=== PATIENT | male | born 1990 | race Caucasian/White ===

== ENCOUNTER 2017-05-23 08:38 | Emergency (ER) | payer MEDICAID ==
[2017-05-23 08:40] VITALS: BMI 23.5
[2017-05-23] MEDS ORDERED: Sodium Chloride 0.9% 500 ML IV ONE (08:56)
--- NOTE | 2017-05-23 09:02 | C.PDOC ---
History Of Present Illness 27 year-old male, whose PMH includes Substance Abuse, presents to the emergency department complaining of generalized body aches, left sided abdominal pain, and leg numbness for the past 3 days. Patient states he has chronic abdominal pain, onset 2 years ago. He was supposed to see GI, but never followed up. He states the pain is in epigastric and LUQ, non-radiating and feels sharp intermittently lasting at most 20 minutes. He admits the pain gets worse whenever he drinks or smokes or uses drugs. He reports using cocaine, "ramya", marijuana, and drinking alcohol 2 days ago. Patient states his legs feel weak and "numb", and when asked further to elaborate he states he just feels like he cannot walk because he is fatigued. He states he was too tired to get out of bed and was unable to get to work. Denies nausea, vomiting, diarrhea, fevers, chills, shortness of breath, or any other associated symptoms. Time Seen by Provider: 05/23/17 08:49 Chief Complaint (Nursing): Lower Extremity Problem/Injury History Per: Patient History/Exam Limitations: no limitations Onset/Duration Of Symptoms: Days Current Symptoms Are (Timing): Still Present Past Medical History Reviewed: Historical Data, Nursing Documentation, Vital Signs Vital Signs: Last Vital Signs Temp 97.8 F 05/23/17 10:32 Pulse 57 L 05/23/17 10:32 Resp 17 05/23/17 10:32 BP 103/65 05/23/17 10:32 Pulse Ox 100 05/23/17 10:32 - Medical History PMH: No Chronic Diseases Surgical History: No Surg Hx Family History: States: No Known Family Hx - Social History Hx Tobacco Use: Yes Hx Alcohol Use: Yes Hx Substance Use: Yes (PCP, cocaine, last use last week.) - Immunization History Hx Tetanus Toxoid Vaccination: No Hx Influenza Vaccination: No Hx Pneumococcal Vaccination: No Review Of Systems Constitutional: Negative for: Fever, Chills Gastrointestinal: Positive for: Abdominal Pain. Negative for: Nausea, Vomiting Genitourinary: Negative for: Dysuria, Hematuria Musculoskeletal: Negative for: Back Pain Skin: Negative for: Rash Neurological: Positive for: Numbness. Negative for: Weakness Physical Exam - Physical Exam Appears: Well, Non-toxic, No Acute Distress Skin: Warm, Dry, No Rash Head: Atraumatic, Normacephalic Eye(s): bilateral: PERRL, EOMI Oral Mucosa: Moist Neck: Supple Chest: Symmetrical, No Tenderness Cardiovascular: Rhythm Regular Respiratory: No Rales, No Rhonchi, No Wheezing, Other (Clear to auscultation) Gastrointestinal/Abdominal: Soft, No Tenderness, No Mass, No Guarding, No Rebound, No Hernia Back: No CVA Tenderness Extremity: Bilateral: Atraumatic, No Pedal Edema, Normal Color And Temperature, Normal ROM Pulses: Left Radial: Normal, Right Radial: Normal Neurological/Psych: Oriented x3, Normal Speech, Normal Motor, Normal Sensation Gait: Steady ED Course And Treatment - Laboratory Results Result Diagrams: 05/23/17 09:17 05/23/17 09:17 Lab Interpretation: No Acute Changes O2 Sat by Pulse Oximetry: 99 (RA) Pulse Ox Interpretation: Normal Medical Decision Making Medical Decision Making: Impression: upper abdominal pain, drug abuse Plan: * Labs, UDS * IV NS * Pepcid Prior Visits: Notes and results from previous visits were reviewed. Patient has been seen for drug abuse Progress Notes: Labs reviewed and unremarkable Re-evaluation Time: 10:12 Patient feels better. Discussed results with patient and provide copy of lab reports. Patient expresses understanding. All questions answered and there is agreement with the plan to discharge home with instructions. Patient stable for discharge. Return if symptoms persist or worsen. Reassessment Condition: Re-examined, Improved Dispo: Discharge home. Patient was recommended to follow up with PCP or clinic in 1-2 days. Return to ED if symptoms worsen. Disposition Counseled Patient/Family Regarding: Diagnosis, Need For Followup, Rx Given - Disposition Referrals: Alcoholics Anonymous [Outside] [facility] [Outside] [facility] [Outside] Disposition: HOME/ ROUTINE Disposition Time: 10:27 Condition: STABLE Additional Instructions: Please follow up with primary doctor or clinic. [facility] at [address] [place] [address]. Please call [phone] or [phone] to arrange appointment. 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 - Scribe Statement The provider has reviewed the documentation as recorded by the Pollyibkrystal Crump All medical record entries made by the Pollyibkrystal were at my direction and personally dictated by me. I have reviewed the chart and agree that the record accurately reflects my personal performance of the history, physical exam, medical decision making, and the department course for this patient. I have also personally directed, reviewed, and agree with the discharge instructions and disposition.
[2017-05-23] MEDS ORDERED: Sodium Chloride 0.9% 1,000 ML ONE (09:05)
[2017-05-23 09:21] LABS: BASO % 1.3 % (0.0-2.0); EOS # 0.2 K/uL (0.0-0.7); EOS % 7.1 % (0.0-4.0); HEMATOCRIT 40.3 % (35.0-51.0); LYMPH # 1.3 K/uL (1.0-4.3); LYMPH % 39.2 % (20.0-40.0); MEAN CELL VOLUME 88.8 fL (80.0-94.0); MEAN CORPUSCULAR HEMOGLOBIN 29.4 pg (27.0-31.0); MEAN CORPUSCULAR HGB CONC 33.1 g/dL (33.0-37.0); MEAN PLATELET VOLUME 8.1 fL (7.2-11.7); MONO # 0.4 K/uL (0.0-0.8); MONO % 12.5 % (0.0-10.0); NRBC % 0.1 % (0.0-2.0); RED CELL DISTRIBUTION WIDTH 13.1 % (11.5-14.5); WHITE BLOOD COUNT 3.3 K/uL (4.8-10.8)
[2017-05-23 09:24] LABS: RBC URINE < 1 /hpf (0-3); URINE BILIRUBIN NEGATIVE (NEGATIVE); URINE BLOOD NEGATIVE (NEGATIVE); URINE COLOR Yellow (YELLOW); URINE GLUCOSE (UA) NORMAL (Normal); URINE KETONE NEGATIVE (NEGATIVE); URINE LEUKOCYTE ESTERASE NEG Leu/uL (Negative); URINE PROTEIN NEGATIVE (NEGATIVE); WBC URINE 1 /hpf (0-5)
[2017-05-23 09:38] LABS: ALB/GLOB RATIO 1.5 (1.0-2.1); ALCOHOL SERUM < 10 mg/dl (0-10); ALKALINE PHOSPHATASE 46 U/L (38-126); ALT/SGPT 36 U/L (21-72); AST/SGOT 24 U/L (17-59); BILIRUBIN,TOTAL 0.8 mg/dL (0.2-1.3); BLOOD UREA NITROGEN 14 mg/dL (9-20); CALCIUM 8.6 mg/dl (8.6-10.4); CARBON DIOXIDE 32 mmol/L (22-30); CHLORIDE 100 mmol/L (98-107); GFR AFRICAN-AMERICAN > 60; GLUCOSE,RANDOM 90 mg/dL (75-110); POTASSIUM 4.1 mmol/L (3.6-5.2); SODIUM 138 mmol/L (132-148); TOTAL PROTEIN 7.1 g/dL (6.3-8.3)
[2017-05-23 10:33] VITALS: BP 103/65; PULSE 57; RESP 17; TEMP 97.8
[2017-05-23 11:55] VITALS: O2SAT 99
== END 2017-05-23 10:41 | disposition home or self-care (01) ==
LOC: C.ER 08:38
DX: F19.10 Other psychoactive substance abuse, uncomplicated (principal); R10.12 Left upper quadrant pain; Z87.891 Personal history of nicotine dependence
CPT/HCPCS: 80053; 80320; 80324; 80345; 80346; 80349; 80353; 80358; 80361; 81001; 83992; 85025; 96361; 96374; 99285; J7040

== ENCOUNTER 2017-07-21 23:14 | Emergency (ER) | payer MEDICAID ==
[2017-07-21 23:14] VITALS: BMI 23.5
[2017-07-21 23:24] VITALS: RESP 18
== END 2017-07-21 23:23 | disposition left against medical advice (07) ==
LOC: C.ER 23:14
DX: Z02.89 Encounter for other administrative examinations (principal); F10.10 Alcohol abuse, uncomplicated

== ENCOUNTER → 2018-01-31 16:50 | Emergency (ER) | payer MEDICAID | END | disposition left against medical advice (07) | LOC: C.ER 16:50 | DX: Z02.89 Encounter for other administrative examinations (principal); F19.10 Other psychoactive substance abuse, uncomplicated ==

== ENCOUNTER 2018-02-01 10:09 | Emergency (ER) | payer MEDICAID ==
[2018-02-01 10:14] VITALS: BMI 21.9
[2018-02-01 10:20] VITALS: BP 123/74; PULSE 87; RESP 18; TEMP 98.8; O2SAT 97
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
== END 2018-02-01 11:02 | disposition home or self-care (01) ==
LOC: C.ER 10:09
DX: L03.115 Cellulitis of right lower limb (principal); Z72.0 Tobacco use

== ENCOUNTER 2018-02-02 11:21 | Emergency (ER) | payer MEDICAID ==
[2018-02-02 11:22] VITALS: BMI 21.9
[2018-02-02 11:30] VITALS: BP 131/87; PULSE 101; RESP 18; TEMP 98.2; O2SAT 96
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
== END 2018-02-02 12:14 | disposition home or self-care (01) ==
LOC: C.ER 11:21
DX: Z48.02 Encounter for removal of sutures (principal)

== ENCOUNTER 2018-02-07 05:28 | Emergency (ER) | payer MEDICAID ==
[2018-02-07 05:28] VITALS: BMI 21.9
[2018-02-07 05:38] VITALS: BP 128/61; PULSE 79; RESP 20; TEMP 98.6; O2SAT 98
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
== END 2018-02-07 06:02 | disposition home or self-care (01) ==
LOC: C.ER 05:28
DX: Z48.00 Encounter for change or removal of nonsurgical wound dressing (principal)

== ENCOUNTER 2018-03-15 13:09 | Emergency (ER) | payer MEDICAID ==
[2018-03-15 13:09] VITALS: BMI 21.9
[2018-03-15 13:16] VITALS: RESP 18; TEMP 98.8
--- NOTE | 2018-03-15 14:26 | C.PDOC ---
History Of Present Illness 28 year old male presents to ED complaining of chronic lower back pain that radiates to left leg for many years. Contrary to triage, patient did not admit to any recent falls. Denies having or taking any medications, fever, chills, weakness, numbness. Time Seen by Provider: 03/15/18 13:39 Chief Complaint (Nursing): Back Pain History Per: Patient History/Exam Limitations: no limitations Onset/Duration Of Symptoms: Days Current Symptoms Are (Timing): Still Present Past Medical History Reviewed: Historical Data, Nursing Documentation, Vital Signs Vital Signs: Last Vital Signs Temp 98.8 F 03/15/18 13:12 Pulse 97 H 03/15/18 13:12 Resp 18 03/15/18 13:12 BP 129/80 03/15/18 13:12 Pulse Ox 98 03/15/18 13:12 Surgical History: No Surg Hx Family History: States: No Known Family Hx - Social History Hx Tobacco Use: Yes Hx Alcohol Use: Yes Hx Substance Use: Yes (PCP, cocaine, LAST USED LAST NIGHT) - Immunization History Hx Tetanus Toxoid Vaccination: No Hx Influenza Vaccination: No Hx Pneumococcal Vaccination: No Review Of Systems Except As Marked, All Systems Reviewed And Found Negative. Constitutional: Negative for: Fever, Chills Musculoskeletal: Positive for: Back Pain (Chronic lower back pain that radiates to left leg.), Leg Pain (Left leg pain) Neurological: Negative for: Weakness, Numbness Physical Exam - Physical Exam Appears: Non-toxic, No Acute Distress Skin: Warm, Dry, No Ecchymosis (No bruises of any type) Head: Atraumatic, Normacephalic Eye(s): bilateral: Normal Inspection Chest: Symmetrical, No Deformity Cardiovascular: Rhythm Regular Respiratory: Normal Breath Sounds Gastrointestinal/Abdominal: Normal Exam, Bowel Sounds Back: No CVA Tenderness, Paraspinal Tenderness, No Straight Leg Raising, Other (Some tenderness to inferior L spine that radiates to left leg. ) Extremity: Normal ROM, No Tenderness, No Deformity Neurological/Psych: Oriented x3 Gait: Steady ED Course And Treatment O2 Sat by Pulse Oximetry: 98 (RA) Pulse Ox Interpretation: Normal Reassessment Condition: Improved (AMBULATES WITH STEADY GAIT, SPEAKS IN FULL SENTENCES) Medical Decision Making Medical Decision Making: Plan: * Ibuprofen Reevaluation: Patient states there is no pain and ambulates with steady gait. Patient was discharged home. Disposition Counseled Patient/Family Regarding: Studies Performed, Diagnosis, Need For Followup, Rx Given - Disposition Referrals: Edu Miguel MD [Medical Doctor] - Disposition: HOME/ ROUTINE Disposition Time: 14:26 Condition: STABLE Additional Instructions: FOLLOW UP WITH DR MIGUEL ON SATURDAY FOR RE-EVALUATION AND PHYSICAL THERAPY REFERRAL. IF URINARY/ BOWEL INCONTINENCE, LEG NUMBNESS OR WEAKNESS DEVELOP RETURN TO ED. 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 - Scribe Statement The provider has reviewed the documentation as recorded by the Scribe Guy Alvarado
[2018-03-15 14:32] VITALS: BP 125/73; PULSE 67
[2018-03-15 15:59] VITALS: O2SAT 98
== END 2018-03-15 14:32 | disposition home or self-care (01) ==
LOC: C.ER 13:09
DX: M54.32 Sciatica, left side (principal)

== ENCOUNTER 2018-03-16 15:52 | Emergency (ER) | payer MEDICAID ==
[2018-03-16 15:53] VITALS: BMI 21.9
--- NOTE | 2018-03-16 16:18 | C.PDOC ---
History Of Present Illness 28-year-old male, presents to the emergency department with complaints of pain in his lower back x1 week. Patient states he was seen in ED yesterday but pain persisted, prompting visit. He denies any nausea/vomiting, numbness/weakness, bladder/bowel incontinence, fever, chills. No other complaints at this time. Time Seen by Provider: 03/16/18 16:16 Chief Complaint (Nursing): Back Pain History Per: Patient History/Exam Limitations: no limitations Current Symptoms Are (Timing): Still Present Past Medical History Reviewed: Historical Data, Nursing Documentation, Vital Signs Vital Signs: Last Vital Signs Temp 98.7 F 03/16/18 15:57 Pulse 77 03/16/18 15:57 Resp 20 03/16/18 15:57 BP 113/55 L 03/16/18 15:57 Pulse Ox 97 03/16/18 15:57 Family History: States: Unknown Family Hx - Social History Hx Tobacco Use: Yes Hx Alcohol Use: Yes Hx Substance Use: Yes (PCP, cocaine, LAST USED LAST NIGHT) - Immunization History Hx Tetanus Toxoid Vaccination: No Hx Influenza Vaccination: No Hx Pneumococcal Vaccination: No Review Of Systems Constitutional: Negative for: Fever, Chills Gastrointestinal: Negative for: Nausea, Vomiting Neurological: Negative for: Weakness, Numbness Physical Exam - Physical Exam Appears: Non-toxic, No Acute Distress Skin: Warm, Dry, No Rash Head: Atraumatic, Normacephalic Eye(s): bilateral: Normal Inspection Nose: Normal Oral Mucosa: Moist Lips: Normal Appearing Neck: Normal ROM Cardiovascular: Rhythm Regular, No Murmur Respiratory: Normal Breath Sounds, No Accessory Muscle Use Back: Paraspinal Tenderness (lumbar) Extremity: Normal ROM, No Deformity Neurological/Psych: Oriented x3, Normal Speech ED Course And Treatment O2 Sat by Pulse Oximetry: 97 Pulse Ox Interpretation: Normal (RA) - Other Rad LS spine xray X-Ray: Viewed By Me, Read By Radiologist Interpretation: Accession No. : [id number]. Patient Name / ID : PARISH MARTIN / [id number]. Exam Date : 03/16/2018 16:31:13 ( Approved ). Study Comment : Sex / Age : M / 28Y. Creator : Radu Cottrell MD. Dictator : Radu Cottrell MD. Planner Scheduler : Health Data Administrator : Radu Cottrell MD. Approver2 : Report Date : 03/16/2018 16:50:38. My Comment : . Date of service: 03/16/2018. PROCEDURE: Radiographs of the Lumbar Spine. HISTORY: Pain. COMPARISON: No prior. FINDINGS: BONES: No evidence of acute compression fractures no retropulsed fragments. Vertebral bodies exhibit normal stature. There appears to be side bending of the upper torso to the right versus less likely levoscoliosis centered at the L4-L5 level. Vertebral bodies otherwise exhibit normal alignment. Facets normally aligned. DISC SPACES: There is mild disc space narrowing L4-L5 level likely related to the aforementioned side bending and/or levoscoliosis. Remaining disc space heights maintained. OTHER FINDINGS: None. IMPRESSION: No acute fractures. Suspect mild side bending of the upper torso to the right versus less likely levoscoliosis as above Medical Decision Making Medical Decision Making: Plan: * Lidocaine, Gabapentin, Toradol, Diazepam * X-Ray Spine * Reassess and Disposition: feels better, ambulatory, no neuro deficit. Disposition - Disposition Referrals: Edu Miguel MD [Medical Doctor] - Disposition: HOME/ ROUTINE Disposition Time: 17:17 Condition: STABLE Additional Instructions: Follow up with your PMD within 1-2 days. Return to ED if feel worse. Prescriptions: Lidocaine 5% [Lidoderm] 1 patch TP DAILY #30 patch Methylprednisolone [Medrol] 4 mg PO DAILY #42 tab Gabapentin [Neurontin] 300 mg PO HS #10 cap Methocarbamol [Robaxin-750] 750 mg PO BID #30 tab Instructions: Low Back Pain (DC) Forms: [facility] (Syriac) - Clinical Impression Clinical Impression: Low back pain - Scribe Statement The provider has reviewed the documentation as recorded by the Scribe (Remy Rodriguez) All medical record entries made by the Scribe were at my direction and personally dictated by me. I have reviewed the chart and agree that the record accurately reflects my personal performance of the history, physical exam, medical decision making, and the department course for this patient. I have also personally directed, reviewed, and agree with the discharge instructions and disposition.
[2018-03-16] MEDS ORDERED: Lidocaine 5% Patch TD STA (16:29)
[2018-03-16] MEDS ORDERED: Lidocaine 5% Patch TD ONE (16:38)
--- NOTE | 2018-03-16 16:52 | RAD ---
Date of service: 03/16/2018 PROCEDURE: Radiographs of the Lumbar Spine. HISTORY: Pain. COMPARISON: No prior. FINDINGS: BONES: No evidence of acute compression fractures no retropulsed fragments. Vertebral bodies exhibit normal stature. There appears to be side bending of the upper torso to the right versus less likely levoscoliosis centered at the L4-L5 level. Vertebral bodies otherwise exhibit normal alignment. Facets normally aligned. DISC SPACES: There is mild disc space narrowing L4-L5 level likely related to the aforementioned side bending and/or levoscoliosis. Remaining disc space heights maintained OTHER FINDINGS: None. IMPRESSION: No acute fractures. Suspect mild side bending of the upper torso to the right versus less likely levoscoliosis as above
[2018-03-16 17:30] VITALS: BP 136/79; PULSE 69; RESP 18; TEMP 98
[2018-03-16 19:59] VITALS: O2SAT 97
== END 2018-03-16 17:30 | disposition home or self-care (01) ==
LOC: C.ER 15:52
DX: M54.5 Low back pain (principal)
CPT/HCPCS: 72100; 96372; 99284; J1885